=== PATIENT | male | born 1965 ===

== ENCOUNTER 2017-10-29 22:02 | Emergency (ER) | payer SELFPAY ==
[2017-10-29 22:03] VITALS: BMI 25.8
[2017-10-29 22:08] VITALS: O2SAT 98
[2017-10-29 22:48] LABS: BASO % 0.4 % (0.0-2.0); EOS # 0.1 K/uL (0.0-0.7); EOS % 0.7 % (0.0-4.0); HEMOGLOBIN 13.4 g/dL (12.0-18.0); LYMPH # 1.6 K/uL (1.0-4.3); LYMPH % 19.3 % (20.0-40.0); MEAN CELL VOLUME 88.9 fL (80.0-94.0); MEAN CORPUSCULAR HEMOGLOBIN 30.2 pg (27.0-31.0); MEAN PLATELET VOLUME 7.8 fL (7.2-11.7); MONO # 0.7 K/uL (0.0-0.8); MONO % 7.9 % (0.0-10.0); NEUT # 5.9 K/uL (1.8-7.0); NEUT % 71.7 % (50.0-75.0); RBC 4.44 Mil/uL (4.40-5.90); RED CELL DISTRIBUTION WIDTH 13.8 % (11.5-14.5)
[2017-10-29 22:49] LABS: WHITE BLOOD COUNT 8.3 K/uL (4.8-10.8)
[2017-10-29 22:56] LABS: URINE BACTERIA FEW (<OCC); URINE BILIRUBIN NEGATIVE (NEGATIVE); URINE BLOOD 2+ (NEGATIVE); URINE CLARITY Clear (Clear); URINE COLOR Yellow (YELLOW); URINE GLUCOSE (UA) NORMAL (Normal); URINE LEUKOCYTE ESTERASE TRACE Leu/uL (Negative); URINE PROTEIN NEGATIVE (NEGATIVE); URINE UROBILINOGEN NORMAL mg/dL (0.2-1.0)
[2017-10-29 23:05] LABS: ALT/SGPT 40 U/L (21-72); AST/SGOT 31 U/L (17-59); BLOOD UREA NITROGEN 18 mg/dL (9-20); CALCIUM 8.8 mg/dl (8.6-10.4); GFR AFRICAN-AMERICAN > 60; GFR NON-AFRICAN AMERICAN > 60
[2017-10-30] MEDS ORDERED: cefTRIAXone IV 1 gm in Dextros 50 ML IVPB STA (00:14)
[2017-10-30] MEDS ORDERED: cefTRIAXone IV 1 gm in Dextros 50 ML IVPB ONE (00:23)
--- NOTE | 2017-10-30 00:31 | US ---
EXAM: US Scrotum EXAM DATE/TIME: 10/29/2017 10:36 PM CLINICAL HISTORY: 52 years old, male; Pain; Scrotum pain; Additional info: Left testicle pain/swelling TECHNIQUE: Real-time ultrasound of the scrotum with color Doppler and image documentation. COMPARISON: No relevant prior studies available. FINDINGS: Right testicle: Contains scattered, punctate echogenic foci, compatible with testicular microcalcifications. Otherwise unremarkable in appearance. Measures 4.5 x 2 x 2.8 cm. Flow seen in the right testicle on color and Doppler imaging, with no evidence of torsion. Right epididymis: Within normal limits in appearance. Head measures 1.2 x 1 cm. Left testicle: Contains scattered, punctate echogenic foci, compatible with testicular microcalcifications. Otherwise unremarkable in appearance. Measures 4.1 x 2.4 x 3.0 cm. Flow seen in the left testicle on color and Doppler imaging, with no evidence of torsion. Left epididymis: Appears abnormally enlarged and heterogeneous, and is hypervascular on color imaging. Findings are compatible with left epididymitis. Hydrocoele: Small bilateral hydroceles are seen. Varicocele: None seen. Other findings: Mild thickening of the scrotal skin is seen bilaterally. IMPRESSION: Findings suspicious for left epididymitis. Mild scrotal skin thickening, which could represent mild scrotal cellulitis. Small bilateral hydroceles. Otherwise, no evidence of significant acute process. No evidence of testicular torsion. Testicular microlithiasis. There is a questionable association of this finding with testicular carcinoma. Follow-up US recommended in patients with risk factors for testicular malignancy, such as a personal/family history of germ cell tumor, maldescent or undescended testes, orchidopexy, or testicular atrophy. See above for remaining findings.
--- NOTE | 2017-10-30 00:32 | C.PDOC ---
History Of Present Illness Pt c/o left testicular pain and swelling. Time Seen by Provider: 10/29/17 22:19 Chief Complaint (Nursing): Male Genitourinary History Per: Patient Onset/Duration Of Symptoms: Days (few), Gradual Current Symptoms Are (Timing): Worse Severity: Moderate Quality Of Discomfort: "Pain" Alleviating Factors: None Additional History Per: Prior Records Past Medical History Reviewed: Historical Data, Nursing Documentation, Vital Signs Vital Signs: Last Vital Signs Temp 99 F 10/29/17 22:06 Pulse 76 10/29/17 22:06 Resp 20 10/29/17 22:06 BP 139/70 10/29/17 22:06 Pulse Ox 98 10/30/17 00:32 - Medical History PMH: No Chronic Diseases Surgical History: No Surg Hx Family History: States: Unknown Family Hx - Social History Hx Alcohol Use: Yes Hx Substance Use: No - Immunization History Hx Tetanus Toxoid Vaccination: No Hx Influenza Vaccination: No Hx Pneumococcal Vaccination: No Review Of Systems Except As Marked, All Systems Reviewed And Found Negative. Constitutional: Negative for: Fever, Weakness Cardiovascular: Negative for: Chest Pain Respiratory: Negative for: Shortness of Breath Gastrointestinal: Negative for: Vomiting, Abdominal Pain, Diarrhea Genitourinary: Positive for: Scrotal Pain. Negative for: Dysuria, Penile Discharge, Penile Pain Musculoskeletal: Negative for: Neck Pain, Back Pain Skin: Negative for: Rash Neurological: Negative for: Weakness, Numbness Physical Exam - Physical Exam Appears: Non-toxic, No Acute Distress Skin: Normal Color, Warm, Dry, No Rash Head: Atraumatic, Normacephalic Eye(s): bilateral: Normal Inspection, PERRL, EOMI Neck: Normal ROM, Supple Cardiovascular: Rhythm Regular Respiratory: Normal Breath Sounds, No Accessory Muscle Use Gastrointestinal/Abdominal: Soft, No Tenderness Back: No CVA Tenderness Male Genital: Testicular Tenderness (left), Testicular Swelling (left), No Inguinal Tenderness, No Inguinal Swelling Extremity: Normal ROM Neurological/Psych: Oriented x3, Normal Motor, Normal Sensation ED Course And Treatment - Laboratory Results Result Diagrams: 10/29/17 22:43 10/29/17 22:43 O2 Sat by Pulse Oximetry: 98 Pulse Ox Interpretation: Normal - CT Scan/US Testicular US Other Rad Studies (CT/US): Read By Radiologist, Radiology Report Reviewed CT/US Interpretation: IMPRESSION: Findings suspicious for left epididymitis. . Mild scrotal skin thickening, which could represent mild scrotal cellulitis. . Small bilateral hydroceles. . Otherwise, no evidence of significant acute process. No evidence of. testicular torsion. . Testicular microlithiasis. There is a questionable association of this. finding with testicular carcinoma. Follow-up US recommended in patients with. risk factors for testicular malignancy, such as a personal/family history of. germ cell tumor, maldescent or undescended testes, orchidopexy, or testicular. atrophy. . See above for remaining findings. Progress - Interventions Interventions:: Observation - Medications Administered Intravenous: NSAID, Other (Abx) - Data Reviewed Data Reviewed: Lab, Diagnostic imaging, Old records - Patient Status Patient status: Partially improved - Continuity of Care Discussed patient case with:: Patient, Family-HIPPA compliant, ED Nurse - Patient Plan Patient Plan: Discharge, F/U with PCP Disposition Counseled Patient/Family Regarding: Studies Performed, Diagnosis, Need For Followup, Rx Given - Disposition Referrals: [facility] [Outside] Tino Smith MD [Staff Provider] - Disposition: HOME/ ROUTINE Disposition Time: 00:40 Condition: STABLE Additional Instructions: Follow up in the clinic and with a Urologist for further evaluation and treatment. Return to the ER if you develop fever, vomiting, trouble urinating, worsening of symptoms or if you have any other concerns. Prescriptions: Ibuprofen [Motrin Tab] 600 mg PO TID PRN #30 tab PRN Reason: Pain, Moderate (4-7) levoFLOXacin [Levaquin] 500 mg PO DAILY #10 tab Instructions: Epididymitis (DC) Print Language: QATARI - Clinical Impression Clinical Impression: Epididymitis, left
[2017-10-30 00:58] VITALS: BP 115/67; PULSE 72; RESP 16; TEMP 98.8
== END 2017-10-30 01:00 | disposition home or self-care (01) ==
LOC: C.ER 22:02 → SUPCPDRO 22:02 → C.ER 10-30 01:00
DX: N45.1 Epididymitis (principal)
CPT/HCPCS: 76870; 80053; 81001; 85025; 87086; 87491; 87591; 96365; 96375; 99285; J0696; J1885

== ENCOUNTER 2017-11-20 11:36 | Emergency (ER) | payer OTHER ==
[2017-11-20 11:36] VITALS: BMI 25.8
[2017-11-20 11:53] VITALS: BP 155/85; PULSE 81; RESP 18; TEMP 97.9; O2SAT 96
--- NOTE | 2017-11-20 12:28 | C.PDOC ---
History Of Present Illness Pt c/o scrotal itching. Time Seen by Provider: 11/20/17 12:10 Chief Complaint (Nursing): Male Genitourinary History Per: Patient Onset/Duration Of Symptoms: Days (about 1 week) Current Symptoms Are (Timing): Still Present Severity: Mild Quality Of Discomfort: Other (itching) Additional History Per: Prior Records Past Medical History Reviewed: Historical Data, Nursing Documentation, Vital Signs Vital Signs: Last Vital Signs Temp 97.9 F 11/20/17 11:52 Pulse 81 11/20/17 11:52 Resp 18 11/20/17 11:52 BP 155/85 H 11/20/17 11:52 Pulse Ox 96 11/20/17 11:52 - Medical History PMH: No Chronic Diseases Surgical History: No Surg Hx Family History: States: Unknown Family Hx - Social History Hx Alcohol Use: Yes Hx Substance Use: No - Immunization History Hx Tetanus Toxoid Vaccination: No Hx Influenza Vaccination: No Hx Pneumococcal Vaccination: No Review Of Systems Except As Marked, All Systems Reviewed And Found Negative. Constitutional: Negative for: Fever, Weakness Gastrointestinal: Negative for: Abdominal Pain Genitourinary: Negative for: Dysuria, Penile Discharge, Scrotal Pain, Rash, Penile Pain Musculoskeletal: Negative for: Neck Pain, Back Pain Skin: Negative for: Rash Neurological: Negative for: Weakness, Numbness Physical Exam - Physical Exam Appears: Non-toxic, No Acute Distress Skin: Normal Color, Warm, Dry, No Rash Head: Atraumatic, Normacephalic Eye(s): bilateral: Normal Inspection, PERRL, EOMI Neck: Normal ROM, Supple Gastrointestinal/Abdominal: Soft, No Tenderness Back: No CVA Tenderness Male Genital: No Testicular Tenderness, No Inguinal Tenderness, No Inguinal Swelling, No Scrotal Swelling, Other (No rash) Extremity: Normal ROM Neurological/Psych: Oriented x3, Normal Motor, Normal Sensation ED Course And Treatment O2 Sat by Pulse Oximetry: 96 Pulse Ox Interpretation: Normal Disposition Counseled Patient/Family Regarding: Diagnosis, Need For Followup, Rx Given - Disposition Referrals: Jas Lao MD [Staff Provider] - Disposition: HOME/ ROUTINE Disposition Time: 12:28 Condition: STABLE Additional Instructions: Follow up with a Urologist for further evaluation and treatment. Return to the ER if you develop testicular pain, swelling, redness, fever, discharge, worsening of symptoms or if you have any other concerns. Prescriptions: Clotrimazole 1% Cream [Lotrimin 1%] 1 applic EXT BID #1 tube Forms: Gen Discharge Inst Burmese Print Language: FRENCH - Clinical Impression Clinical Impression: Scrotal itching
== END 2017-11-20 12:33 | disposition home or self-care (01) ==
LOC: C.ER 11:36
DX: L29.1 Pruritus scroti (principal)